=== PATIENT | female | born 1990 | race Caucasian/White ===

== ENCOUNTER 2024-02-09 19:23 | Emergency (ER) | payer OTHER, SELFPAY ==
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
[2024-02-09 19:34] VITALS: BP 123/69; PULSE 85; RESP 18; TEMP 36.8; O2SAT 100; BMI 21.3
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
[2024-02-09 22:04] VITALS: BP 123/69; PULSE 85; RESP 18; TEMP 36.8; O2SAT 100
== END 2024-02-09 22:15 | disposition home or self-care (01) ==
PROVIDERS: Emergency Provider Emergency Medicine
DX: S19.9XXA Unspecified injury of neck, initial encounter (principal); M54.2 Cervicalgia; M54.50 Low back pain, unspecified; V43.53XA Car driver injured in collision with pick-up truck in traffic accident, initial encounter; Y93.89 Activity, other specified; Y92.488 Other paved roadways as the place of occurrence of the external cause; Y99.8 Other external cause status
CPT/HCPCS: 70450; 72125; 99282; 99284